=== PATIENT | male | born 1965 | race Caucasian/White ===

== ENCOUNTER → 2019-04-06 | Outpatient (CLI) | payer BC ==
--- NOTE | 2019-04-06 19:31 | Diagnostic Imaging Report ---
INDICATION: Nephrolithiasis. EXAM: KUB at 04:14 p.m. FINDINGS: There are two opacities projected over the right proximal ureter measuring 3.0 x 4.0 mm in length. There is a 2 mm opacity projecting over the upper portion of the left renal pelvis. IMPRESSION: Suspect left nephrolithiasis and right ureterolithiasis. Dictated by: Dictated on workstation # [id number]
== END ==
LOC: RAD 16:03
PROVIDERS: ATTEND Urology
DX: N20.2 Calculus of kidney with calculus of ureter (principal)
CPT/HCPCS: 74018

== ENCOUNTER → 2019-04-17 | Outpatient (CLI) | payer BC ==
[~2019-04-17] MED LIST: ALLO300T2 PO; CHOL20003 PO; HYDR-3870 PO; NITR-65 PO; TAMS0.4C98 PO; TRIA1TAB3 PO
--- NOTE | 2019-04-17 17:00 | Diagnostic Imaging Report ---
INDICATION: Right ureteral and bilateral renal stones. TIME OF EXAM: 03:05 p.m. Correlation is made with prior study from 04/06/2019. FINDINGS: Previously noted opacity projected in the region of the left renal pelvis is unchanged. There is also a calcific density in the region of the proximal right ureter, located between the right transverse processes of L2 and L3. This has extended slightly caudal since the prior radiograph. There are some tiny opacities projected over the right kidney consistent with renal calculi. No other abnormality is detected. IMPRESSION: Bilateral renal calculi. There is also slight migration of the right ureteral calculus since examination from 11 days earlier. Dictated by: Dictated on workstation # [id number]
== END ==
LOC: RAD 14:58
PROVIDERS: ATTEND Urology
DX: N20.2 Calculus of kidney with calculus of ureter (principal)
CPT/HCPCS: 74018

== ENCOUNTER 2019-04-18 05:34 | Outpatient (CLI) | payer BC ==
[~2019-04-18] VITALS: Ht 167.6 cm; Wt 97.5 kg
[2019-04-18] MEDS ORDERED: ALLO300T2 PO (10:19)
[2019-04-18] MEDS ORDERED: TRIA1TAB3 PO (10:19)
[2019-04-18] MEDS ORDERED: CHOL20003 PO (10:19)
[2019-04-18] MEDS ORDERED: TAMS0.4C98 PO (10:19)
[2019-04-19] MEDS ORDERED: HYDR-3870 PO (12:55)
[2019-04-19] MEDS ORDERED: NITR-65 PO (12:55)
== END 2019-04-18 10:26 | disposition home or self-care (01) ==
LOC: PREOP 05:34
PROVIDERS: ATTEND Urology
DX: Z01.818 Encounter for other preprocedural examination (principal)

== ENCOUNTER 2019-04-19 07:50 | Day surgery (SDC) | payer BC ==
[2019-04-19] VITALS (11 sets, daily range): BP systolic 97–143; BP diastolic 64–84
[~2019-04-19] VITALS: Ht 167.6 cm; Wt 97.5 kg
--- NOTE | 2019-04-19 07:42 | Progress Note-Pre Operative ---
Pre-Operative Progress Note H&P Reviewed The H&P was reviewed, patient examined and no changes noted. Date Seen by Provider: Apr 19, 2019 Time Seen by Provider: 08:22 Date H&P Reviewed: Apr 19, 2019 Time H&P Reviewed: 08:22 Pre-Operative Diagnosis: RT PROXIMAL URETERAL STONE BENY JENSEN MD Apr 19, 2019 07:42
[~2019-04-19 07:50] MED LIST changes: -HYDR-3870 PO; -NITR-65 PO
--- NOTE | 2019-04-19 08:21 | Progress Note-Pre Operative ---
Pre-Operative Progress Note H&P Reviewed The H&P was reviewed, patient examined and no changes noted. Date Seen by Provider: Apr 19, 2019 Time Seen by Provider: 08:21 Date H&P Reviewed: Apr 19, 2019 Time H&P Reviewed: 08:21 Pre-Operative Diagnosis: RT PROXIMAL URETERAL STONE BENY JENSEN MD Apr 19, 2019 08:21
[2019-04-19] MEDS ORDERED: WATER (STERILE) FOR INJECTION 10 ML ONE (08:53)
[2019-04-19] MEDS ORDERED: cefTRIAXone 1,000 MG IV (ROCEPHIN) VIAL ONE (08:53)
[2019-04-19] MEDS ORDERED: proPOfol 200 MG/20 ML (DIPRIVAN) VIAL IV ONE (09:39)
[2019-04-19] MEDS ORDERED: MIDAZOLAM 2 MG/2 ML (VERSED) VIAL ONE (09:40)
[2019-04-19] MEDS ORDERED: fentaNYL INJECTION 100 MCG/2 ML AMP ONE (09:40)
[2019-04-19] MEDS ORDERED: LIDOCAINE PF 2% 5 ML (XYLOCAINE) VIAL ONE (09:43)
[2019-04-19] MEDS ORDERED: FUROSEMIDE 40 MG/4 ML INJ (LASIX) ONE (09:58)
[2019-04-19] MEDS ORDERED: KETOROLAC 30 MG/ML VIAL ONE (09:58)
[2019-04-19] MEDS ORDERED: SEVOFLURANE (ULTANE) 15 ML INHAL SOLN ONE (11:24)
[2019-04-19] MEDS ORDERED: DEXAMETHASONE 10 MG/ML (DECADRON) 1 ML VIAL ONE (11:24)
[2019-04-19] MEDS ORDERED: ONDANSETRON 4 MG/2 ML (SDV) Z0FRAN ONE (11:24)
--- NOTE | 2019-04-19 12:19 | Diagnostic Imaging Report ---
Indication: Preop ESWL. Findings: Punctate calculus projects over right lower pole calyx unchanged. Calcification along the right flank as projecting between the distal tips of the right second and third lumbar transverse processes which could be bowel content or ureteral stone. No abnormal pelvic calcifications. IMPRESSION: Right lower pole renal calculus unchanged. Questionable ureteral stone inferior to the L2 transverse process tip. Dictated by: Dictated on workstation # [id number]
--- NOTE | 2019-04-19 12:21 | Progress Note-Post Operative ---
Post-Operative Progess Note Surgeon (s)/Modern Greek Studies Professor (s) Surgeon BENY JENSEN MD Modern Greek Studies Professor: NONE Pre-Operative Diagnosis RT PROXIMAL URETERAL STONE Post-Operative Diagnosis SAME Procedure & Operative Findings Date of Procedure 04/19/19 Procedure Performed/Findings RT ESWL Anesthesia Type GENERAL Estimated Blood Loss Estimated blood loss (mL): NONE Specimens/Packing Specimens Removed NONE Packing: NONE BENY JENSEN MD Apr 19, 2019 12:21
--- NOTE | 2019-04-19 12:23 | Discharge Inst-Urology ---
Discharge Inst-Urology Discharge Medications New, Converted, or Re-newed RX: RX on Chart Patient Instructions/Follow Up Plan Please make appointment to been seen in office in [address] home KUB prior to office Post ESWL instructions Increase oral fluids for 48 hours and then as needed. Diet and Activity as tolerated. If questions or concerns contact your physician Or seek help at emergency department. BENY JENSEN MD Apr 19, 2019 12:22
[2019-04-19] MEDS ORDERED: CATHETER FLUSH 10 ML SYR IV PRN (12:30)
[2019-04-19] MEDS ORDERED: cefTRIAXone 1,000 MG/SWFI 10 ML IV PUSH IV ONE ×2 (12:30)
[2019-04-19] MEDS ORDERED: LACTATED RINGERS 1,000 ML IV PRN (12:50)
--- OUTSIDE RECORDS SUMMARY | 2019-04-19 12:50 | XMS REPORT | Continuity of Care Document ---
Author Organization Unknown Address Unknown Allergies Active Description Code Type Severity Reaction Onset Reported/Identified Relationship to Patient Clinical Status Yes NO KNOWN DRUG ALLERGIES UNKNOWN NO KNOWN DRUG ALLERG Yes NO KNOWN DRUG ALLERGIES UNKNOWN UNKNOWN Medications Medication Packaging Start Date Stop Date Route Dosage Sig ALLOPURINOL TAB 100 MG (ZYLOPRIM) MG 05/06/2017 05/13/2017 BID&0800,2000 ONDANSETRON VIAL INJ 4 MG/2CC (ZOFRAN 2CC VIAL) MG 05/14/2017 05/14/2017 ONCE&0840 LACTATED RINGERS 1000CC IV BAG INJ ml 05/14/2017 05/15/2017 CONTINUOUSEVERY 0 Hour LACTATED RINGERS 1000CC IV BAG INJ ml 08/02/2018 08/09/2018 CONTINUOUSEVERY 0 Hour Problems Date Dx Coded Attending Type Code Diagnosis Diagnosed By 05/14/2017 Eric Petty 211.3 BENIGN NEOPLASM OF COLON 05/14/2017 Eric Petty D12.5 BENIGN NEOPLASM OF SIGMOID COLON 05/14/2017 Eric Petty V76.51 SCREENING FOR MALIGNANT NEOPLASMS OF COLON 05/14/2017 Eric Petty Z12.11 ENCOUNTER FOR SCREENING FOR MALIGNANT NEOPLASM OF COLON 08/02/2018 Eric Petty 211.3 BENIGN NEOPLASM OF COLON 08/02/2018 Eric Petty K63.5 POLYP OF COLON 08/02/2018 Eric Petty V12.72 PERSONAL HISTORY OF COLONIC POLYPS 08/02/2018 Eric Petty V16.0 FAMILY HISTORY OF MALIGNANT NEOPLASM OF GASTROINTESTINAL TRACT 08/02/2018 Eric Petty Z80.0 FAMILY HISTORY OF MALIGNANT NEOPLASM OF DIGESTIVE ORGANS 08/02/2018 Eric Petty Z86.010 PERSONAL HISTORY OF COLONIC POLYPS Procedures There is no data. Results Test Result Range Protime - 04/19/17 10:38 INR 0.9 1.0-4.0 Protime 11.0 Sec 9.9-12.8 EKG - 05/06/17 13:28 EKG Complete Surgical Pathology - 05/14/17 10:22 Surg Path Sent to [facility] Urinalysis - 04/08/18 10:44 Icotest N/A Negative Urine Volume Urine Volume Sufficient (10mL) Urine Yeast No Yeast present Urine-Appearance Clear Clear Urine-Bacteria Negative Urine-Bilirubin Negative Negative Urine-Blood Negative Negative Urine-Color Yellow Colorless-Lt. Yellow Urine-Glucose Negative Negative Urine-Ketones Negative Negative Urine-Leukocytes Negative Negative Urine-Mucus 4+ Urine-Nitrite Negative Negative Urine-Other Urine Saved if Culture Needed (48hrs from time of collection) Urine-pH 5.5 5-8.5 Urine-Protein Negative Negative Urine-RBC Negative Urine-Specific Mineral 1.025 1.000-1.030 Urine-WBC Rare/HPF Urobilinogen 0.2 E.U./dL 0.2-1.0 Protime - 07/26/18 14:47 INR 1.0 1.0-4.0 Protime 11.1 Sec 9.9-12.8 Surgical Pathology - 08/02/18 09:45 Surg Path Sent to [facility] Encounters ACCT No. Visit Date/Time Discharge Status Pt. Type Provider Facility Loc./Unit Complaint [id number] 03/20/2019 12:30:00 03/20/2019 23:59:00 DIS Outpatient Celestina Alvarenga [id number] 08/02/2018 00:00:00 08/02/2018 09:45:00 DIS Outpatient Eric Petty [id number] 07/26/2018 14:33:00 07/26/2018 23:59:00 DIS Outpatient Eric Petty [id number] 04/08/2018 10:35:00 04/08/2018 23:59:00 DIS Outpatient Celestina Alvarenga [id number] 05/14/2017 00:00:00 05/14/2017 10:41:00 DIS Outpatient Eric Petty [id number] 05/06/2017 13:03:00 05/06/2017 23:59:00 DIS Outpatient Eric Petty [id number] 2017 10:34:00 2017 23:59:00 DIS Outpatient Celestina Alvarenga [id number] 05/14/2017 10:48:16 Document Registration
--- NOTE | 2019-04-19 12:52 | Anesthesia-General Post-Op ---
General Patient Condition Mental Status/LOC: Same as Preop Cardiovascular: Satisfactory Nausea/Vomiting: Absent Respiratory: Satisfactory Pain: Controlled Complications: Absent Post Op Complications Complications None Follow Up Care/Instructions Patient Instructions None needed. Anesthesia/Patient Condition Patient Condition Patient is doing well, no complaints, stable vital signs, no apparent adverse anesthesia problems. No complications reported per nursing. CHAKA RUSH CRNA Apr 19, 2019 12:52
[2019-04-19] MEDS ORDERED: NITR-65 PO (12:55)
[2019-04-19] MEDS ORDERED: HYDR-3870 PO (12:55)
[2019-04-19] MEDS ORDERED: cefTRIAXone FOR IV USE 1,000 MG in WATER (STERILE) FOR INJECTION 10 ML IV ONE (13:00)
--- NOTE | 2019-04-19 15:17 | Diagnostic Imaging Report ---
INDICATION: Status post right-sided lithotripsy. COMPARISON: Earlier same day. FINDINGS: Two supine radiographic views of the abdomen were obtained. There is subtle extraosseous calcification projecting lateral to the right transverse process of L2. This appears essentially stable in position when compared to earlier same day. No other unexpected extraosseous calcifications or radiopaque foreign bodies are seen. Small bowel loops are nondistended. There is no large collection of free intraperitoneal air. IMPRESSION: 1. Stable calculus near the right L2 transverse process, which may be within the right ureter. 2. Previously described potential right renal calculus is not well visualized on this exam. Dictated by: Dictated on workstation # [id number]
--- NOTE | 2019-04-19 15:19 | OPERATIVE REPORT ---
DATE OF SERVICE: 04/19/2019 PREOPERATIVE DIAGNOSIS: Right proximal ureteral stone. POSTOPERATIVE DIAGNOSIS: Right proximal ureteral stone. OPERATION PERFORMED: Right ESWL. SURGEON: Hayes Jensen MD. ANESTHESIA: General. COMPLICATIONS: None. DESCRIPTION OF PROCEDURE: Under satisfactory general anesthesia with the patient in supine position on the ESWL table, the right proximal ureteral stone was localized. Shocks were delivered at a kV of 6. A total of 2000 shocks completely fragmented the stone that was invisible. The patient received 40 mg of Lasix and 30 mg of Toradol IV at the end of the procedure. He tolerated the procedure and anesthesia well and was sent to recovery room in stable condition. Job ID: [id number] DocumentID: [id number] Dictated Date: 04/19/2019 11:23:13 Urology Teacher Date: 04/19/2019 15:19:12 Dictated By: HAYES JENSEN MD
== END 2019-04-19 13:40 | disposition home or self-care (01) ==
LOC: SDC 07:50
PROVIDERS: ATTEND Urology
DX: N20.1 Calculus of ureter (principal); Z11.2 Encounter for screening for other bacterial diseases; I10 Essential (primary) hypertension; N40.0 Benign prostatic hyperplasia without lower urinary tract symptoms; Z80.42 Family history of malignant neoplasm of prostate; Z79.899 Other long term (current) drug therapy
CPT/HCPCS: 74018; 87081

== ENCOUNTER → 2019-05-17 | Outpatient (CLI) | payer BC ==
[~2019-05-17] MED LIST changes: +HYDR-3870 PO; +NITR-65 PO
--- NOTE | 2019-05-17 14:46 | Diagnostic Imaging Report ---
Indication: Nephrolithiasis KUB 2:37 PM Right kidney is largely obscured by colonic fecal material. There are no calculi seen in the left kidney. Bowel gas pattern is normal. There is a 2 mm calculus projecting between the third and fourth transverse processes on the right. Impression: Possible right ureterolithiasis. Dictated by: Dictated on workstation # [id number]
== END ==
LOC: RAD 14:25
PROVIDERS: ATTEND Urology
DX: N20.2 Calculus of kidney with calculus of ureter (principal)
CPT/HCPCS: 74018

== ENCOUNTER 2019-05-21 12:00 | Outpatient (RCR) | payer BC | END 2019-08-15 | disposition home or self-care (01) | LOC: LAB 12:00 | PROVIDERS: ATTEND Urology | DX: N20.9 Urinary calculus, unspecified (principal) | CPT/HCPCS: 82140; 82340; 82507; 82570; 83735; 83945; 83986; 84105; 84133; 84300; 84392; 84560 ==

== ENCOUNTER → 2019-06-21 | Outpatient (CLI) | payer BC ==
--- NOTE | 2019-06-21 18:20 | Diagnostic Imaging Report ---
INDICATION: History of kidney stones. COMPARISON: 05/17/2019. FINDINGS: Two views of the abdomen demonstrate a punctate calcification overlying the right L3 transverse process. This was seen on the prior examination. There is mild constipation. The left collecting system is unremarkable. IMPRESSION: Punctate calcification overlying the right L3 transverse process. Dictated by: Dictated on workstation # [id number]
== END ==
LOC: RAD 17:12
PROVIDERS: ATTEND Urology
DX: M53.86 Other specified dorsopathies, lumbar region (principal); Z87.442 Personal history of urinary calculi
CPT/HCPCS: 74018

== ENCOUNTER → 2021-06-25 | Outpatient (CLI) | payer BC ==
[~2021-06-25] MED LIST changes: -TAMS0.4C98 PO; +TMSL.4C PO
--- NOTE | 2021-06-25 15:57 | Diagnostic Imaging Report ---
PROCEDURE: CT abdomen and pelvis without contrast. TECHNIQUE: Multiple contiguous axial images were obtained through the abdomen and pelvis without the use of intravenous contrast. Auto Exposure Controls were utilized during the CT exam to meet ALARA standards for radiation dose reduction. INDICATION: Left ureteral stone, follow-up. COMPARISON: Comparison is made with prior CT from 07/20/2007 and KUB study from 06/21/2019. FINDINGS: The lung bases are clear. The liver is unremarkable. Gallbladder is unremarkable. There is no biliary ductal dilatation. The pancreas and spleen are unremarkable. No adrenal mass is detected. There is an approximately 2 mm nonobstructing calculus in the lower pole of the right kidney. No definite left renal calculi are seen. No ureteral or bladder calculi are seen. There is no hydronephrosis. Aorta is calcified but nonaneurysmal. The small and large bowel loops are normal in caliber. There is no obstruction. There is no free fluid present. Prostate is unremarkable. Bony structures are nonacute. IMPRESSION: Approximately 2 mm nonobstructing right renal calculus. No ureteral calculi or hydronephrosis is detected. Dictated by: Dictated on workstation # [id number]
== END ==
LOC: RAD FS 15:22
PROVIDERS: ATTEND Urology
DX: N20.0 Calculus of kidney (principal)
CPT/HCPCS: 74176